=== PATIENT | male | born 1945 | race Caucasian/White ===

== ENCOUNTER → 2018-11-07 | Outpatient (CLI) | payer OTHER ==
--- NOTE | 2018-11-07 15:49 | Diagnostic Imaging Report ---
PROCEDURE: US Venous Lower Ext Eddie. TECHNIQUE: Multiple real-time grayscale images were obtained over the lower extremities in various projections, bilaterally. Additional duplex Doppler and color Doppler images were also obtained. INDICATION: Leg swelling. FINDINGS: There is no evidence of right or left lower extremity DVT. Both lower extremity deep venous systems demonstrate normal compressibility with normal response to augmentation and Valsalva. No fluid collection or mass is seen. IMPRESSION: No evidence of right or left lower extremity DVT. Dictated by: Dictated on workstation # [id number]
== END ==
LOC: RAD 13:41
PROVIDERS: ATTEND Pediatrics
DX: M79.89 Other specified soft tissue disorders (principal)
CPT/HCPCS: 93970

== ENCOUNTER → 2018-12-27 | Outpatient (CLI) | payer OTHER ==
[2018-12-27 11:22] LABS: CLARITY,URINE CLEAR; COLOR,URINE YELLOW; GLUCOSE, URINE (UA) NEGATIVE (NEGATIVE); PROTEIN,URINE NEGATIVE (NEGATIVE)
[2018-12-27 11:23] LABS: BACTERIA,URINE FEW /HPF; BILIRUBIN,URINE NEGATIVE (NEGATIVE); KETONES,URINE NEGATIVE (NEGATIVE); LEUKOCYTE ESTERASE ,URINE 1+ (NEGATIVE); NITRITE,URINE NEGATIVE (NEGATIVE); UROBILINOGEN,URINE 0.2 MG/DL (NORMAL)
== END ==
PROVIDERS: ATTEND Pediatrics
DX: N32.81 Overactive bladder (principal)
CPT/HCPCS: 81000; 87088

== ENCOUNTER → 2019-03-31 | Outpatient (CLI) | payer OTHER ==
[2019-03-31 16:38] LABS: ALKALINE PHOSPHATASE 65 U/L (40-136); BILIRUBIN,TOTAL 0.3 MG/DL (0.1-1.0); BUN/CREATININE RATIO 15; CALCIUM 9.1 MG/DL (8.5-10.1); CARBON DIOXIDE 26 MMOL/L (21-32); CHLORIDE 101 MMOL/L (98-107); CREATININE SERUM 0.85 MG/DL (0.60-1.30); GFR ESTIMATED > 60; GLUCOSE 237 MG/DL (70-105); MAGNESIUM 2.1 MG/DL (1.6-2.4); POTASSIUM 4.5 MMOL/L (3.6-5.0); SODIUM 140 MMOL/L (135-145)
[2019-03-31 16:39] LABS: ALANINE AMINOTRANSFERASE 7 U/L (0-55); ALBUMIN 4.2 GM/DL (3.2-4.5); BASOPHILS % (AUTO) 1 % (0-10); EOSINOPHILS % (AUTO) 4 % (0-10); HEMATOCRIT 42 % (40-54); HEMOGLOBIN 12.7 G/DL (13.3-17.7); LYMPHOCYTES # (AUTO) 1.3 X 10^3 (1.0-4.0); LYMPHOCYTES % (AUTO) 14 % (12-44); MEAN CORPUSCULAR HEMOGLOBIN 27 PG (25-34); MEAN CORPUSCULAR HGB CONC 31 G/DL (32-36); MEAN CORPUSCULAR VOLUME 89 FL (80-99); MEAN PLATELET VOLUME 11.4 FL (7.4-10.4); MONOCYTES # (AUTO) 0.6 X 10^3 (0.0-1.0); MONOCYTES % (AUTO) 6 % (0-12); NEUTROPHILS # (AUTO) 6.8 X 10^3 (1.8-7.8); NEUTROPHILS % (AUTO) 75 % (42-75); PLATELET COUNT 295 10^3/uL (130-400); RED CELL DISTRIBUTION WIDTH 13.5 % (10.0-14.5); TOTAL PROTEIN 7.1 GM/DL (6.4-8.2); WHITE BLOOD COUNT 9.1 10^3/uL (4.3-11.0)
[2019-03-31 16:40] LABS: BASOPHILS # (AUTO) 0.1 10^3/uL (0.0-0.1); EOSINOPHILS # (AUTO) 0.4 10^3/uL (0.0-0.3)
[2019-04-01 09:06] LABS: FREE T4 (FREE THYROXINE) 0.79 NG/DL (0.70-1.48)
== END ==
LOC: LAB FS 16:04
PROVIDERS: ATTEND Pediatrics
DX: I48.0 Paroxysmal atrial fibrillation (principal); M79.89 Other specified soft tissue disorders; R53.83 Other fatigue
CPT/HCPCS: 36415; 80053; 83735; 84439; 84443; 85025

== ENCOUNTER → 2022-06-01 | Outpatient (CLI) | payer OTHER ==
[2022-06-01 08:07] LABS: POTASSIUM 4.2 MMOL/L (3.6-5.0)
[2022-06-01 08:08] LABS: BILIRUBIN,TOTAL 0.4 MG/DL (0.1-1.0); CALCIUM 9.2 MG/DL (8.5-10.1); CREATININE SERUM 0.83 MG/DL (0.60-1.30); TOTAL PROTEIN 6.8 GM/DL (6.4-8.2)
== END ==
PROVIDERS: ATTEND Pediatrics
DX: R60.9 Edema, unspecified (principal)
CPT/HCPCS: 80053

== ENCOUNTER → 2022-06-03 | Outpatient (CLI) | payer OTHER ==
[2022-06-03 09:57] LABS: BASOPHILS # (AUTO) 0.1 10^3/uL (0.0-0.1); BASOPHILS % (AUTO) 1 % (0-10); EOSINOPHILS # (AUTO) 0.6 10^3/uL (0.0-0.3); EOSINOPHILS % (AUTO) 7 % (0-10); HEMATOCRIT 42 % (40-54); HEMOGLOBIN 13.2 g/dL (13.3-17.7); LYMPHOCYTES # (AUTO) 1.5 10^3/uL (1.0-4.0); LYMPHOCYTES % (AUTO) 17 % (12-44); MEAN CORPUSCULAR HEMOGLOBIN 28 pg (25-34); MEAN CORPUSCULAR HGB CONC 31 g/dL (32-36); MEAN CORPUSCULAR VOLUME 88 fL (80-99); MEAN PLATELET VOLUME 11.5 fL (9.0-12.2); MONOCYTES # (AUTO) 0.6 10^3/uL (0.0-1.0); MONOCYTES % (AUTO) 6 % (0-12); NEUTROPHILS # (AUTO) 6.3 10^3/uL (1.8-7.8); NEUTROPHILS % (AUTO) 70 % (42-75); PLATELET COUNT 251 10^3/uL (130-400)
== END ==
PROVIDERS: ATTEND Pediatrics
DX: R60.9 Edema, unspecified (principal)
CPT/HCPCS: 85025

== ENCOUNTER → 2022-08-03 | Outpatient (CLI) | payer OTHER ==
[2022-08-03 12:38] LABS: BASOPHILS % (AUTO) 1 % (0-10); EOSINOPHILS # (AUTO) 0.4 10^3/uL (0.0-0.3); EOSINOPHILS % (AUTO) 5 % (0-10); HEMATOCRIT 40 % (40-54); HEMOGLOBIN 12.6 g/dL (13.3-17.7); LYMPHOCYTES # (AUTO) 1.5 10^3/uL (1.0-4.0); LYMPHOCYTES % (AUTO) 17 % (12-44); MEAN CORPUSCULAR HEMOGLOBIN 28 pg (25-34); MEAN CORPUSCULAR HGB CONC 32 g/dL (32-36); MEAN CORPUSCULAR VOLUME 89 fL (80-99); MEAN PLATELET VOLUME 11.9 fL (9.0-12.2); MONOCYTES # (AUTO) 0.7 10^3/uL (0.0-1.0); MONOCYTES % (AUTO) 8 % (0-12); NEUTROPHILS # (AUTO) 6.1 10^3/uL (1.8-7.8); NEUTROPHILS % (AUTO) 69 % (42-75); PLATELET COUNT 236 10^3/uL (130-400); WHITE BLOOD COUNT 8.8 10^3/uL (4.3-11.0)
[2022-08-03 13:52] LABS: BILIRUBIN,URINE NEGATIVE (NEGATIVE); CLARITY,URINE CLEAR; COLOR,URINE YELLOW; GLUCOSE, URINE (UA) NEGATIVE (NEGATIVE); KETONES,URINE NEGATIVE (NEGATIVE); LEUKOCYTE ESTERASE ,URINE NEGATIVE (NEGATIVE); NITRITE,URINE NEGATIVE (NEGATIVE); PROTEIN,URINE NEGATIVE (NEGATIVE)
[2022-08-03 14:01] LABS: BACTERIA,URINE NEGATIVE /HPF; RBC,URINE RARE /HPF; SQUAMOUS EPITHELIAL CELL,UR RARE /HPF
== END ==
PROVIDERS: ATTEND Pediatrics
DX: R50.9 Fever, unspecified (principal)
CPT/HCPCS: 81000; 85025

== ENCOUNTER → 2022-08-13 | Outpatient (CLI) | payer OTHER ==
[2022-08-13 15:55] LABS: BILIRUBIN,URINE NEGATIVE (NEGATIVE); CLARITY,URINE CLEAR; COLOR,URINE YELLOW; GLUCOSE, URINE (UA) NEGATIVE (NEGATIVE); KETONES,URINE NEGATIVE (NEGATIVE); LEUKOCYTE ESTERASE ,URINE TRACE (NEGATIVE); NITRITE,URINE NEGATIVE (NEGATIVE); PROTEIN,URINE NEGATIVE (NEGATIVE)
[2022-08-13 16:01] LABS: BACTERIA,URINE TRACE /HPF; RBC,URINE 0-2 /HPF; SQUAMOUS EPITHELIAL CELL,UR RARE /HPF
== END ==
PROVIDERS: ATTEND Pediatrics
DX: R30.9 Painful micturition, unspecified (principal)
CPT/HCPCS: 81000; 87088

== ENCOUNTER → 2022-10-26 | Outpatient (CLI) | payer OTHER ==
[2022-10-26 14:10] LABS: BILIRUBIN,TOTAL 0.3 MG/DL (0.1-1.0); CALCIUM 9.2 MG/DL (8.5-10.1); CREATININE SERUM 0.79 MG/DL (0.60-1.30); POTASSIUM 4.2 MMOL/L (3.6-5.0)
[2022-10-26 16:02] LABS: FREE T4 (FREE THYROXINE) 0.81 NG/DL (0.70-1.48)
== END ==
PROVIDERS: ATTEND Pediatrics
DX: I10 Essential (primary) hypertension (principal)
CPT/HCPCS: 80053; 80178; 84439; 84443; 84481

== ENCOUNTER 2023-02-09 01:14 | Emergency (ER) | payer OTHER ==
[~2023-02-09] VITALS: Ht 180.3 cm; Wt 120.0 kg
--- NOTE | 2023-02-09 01:30 | ED Fall/Injury ---
General Stated Complaint: FALL|BILATERAL HIP PAIN Source: patient, EMS, care home records History of Present Illness Date Seen by Provider: Feb 09, 2023 Time Seen by Provider: 01:18 Initial Comments 77-year-old male presenting with EMS from [facility]. Patient has a history of Parkinson's and does not walk. He sleeps in a chair and had slid from the recliner onto the floor. He states that initially his hips were hurting. He denies having any pain currently. He denies hitting his head or any other injuries. He also reports that he has had bilateral hip replacement previously. Occurred: just prior to arrival Injuries/Pain Location: lower extremity (Initially had bilateral hand pain but now denies any pain) Context: slipped (Slipped from the chair onto the floor) Loss of Consciousness: no loss of consciousness Associated Symptoms (Fall): No Abdominal Pain, No Chest Pain, No Confusion, No Dizziness, No Headache, No Lightheadedness, No Muscle Spasms, No Nausea/Vomiting, No Neck Pain, No Ringing in Ears, No Seizures, No Shortness of Air, No Slurred Speech; Trouble Walking (Chronic); No Vision Changes Allergies and Home Medications Allergies Coded Allergies: aripiprazole (Unverified Allergy, Unknown, 02/09/23) lovastatin (Unverified Allergy, Unknown, 02/09/23) melatonin (Unverified Allergy, Unknown, 02/09/23) morphine (Unverified Allergy, Unknown, 02/09/23) niacin (Unverified Allergy, Unknown, 02/09/23) pravastatin (Unverified Allergy, Unknown, 02/09/23) quetiapine (Unverified Allergy, Unknown, 02/09/23) simvastatin (Unverified Allergy, Unknown, 02/09/23) Patient Home Medication List Home Medication List Reviewed: Yes Review of Systems Review of Systems Constitutional: No chills, No fever Eyes: No Symptoms Reported Ears, Nose, Mouth, Throat: no symptoms reported Respiratory: no symptoms reported Cardiovascular: no symptoms reported Gastrointestinal: no symptoms reported Genitourinary: no symptoms reported Musculoskeletal: see HPI Past [id number] Hx Past Medical History Surgery/Hospitalization HX: Parkinson's, bipolar, obesity, frequent falls Physical Exam Vital Signs Vital Signs - First Documented 02/09/23 01:18 Temp 36.8 Pulse 66 Resp 20 B/P (MAP) 139/80 (99) Pulse Ox 97 O2 Delivery Room Air Capillary Refill : Height, Weight, BMI Height: '" Weight: lbs. oz. kg; BMI Method: General Appearance: no apparent distress, obese, other (Chronically ill- appearing) Cardiovascular: normal peripheral pulses Extremities: non-tender, pedal edema (2+ pitting edema bilateral lower extremities) Neurologic/Psychiatric: alert, oriented x 3 Skin: warm/dry Ilan Coma Score Best Eye Response: (4) Open Spontaneously Best Verbal Response: (5) Oriented Best Motor Response: (6) Obeys Commands Ilan Total: 15 Progress/Results/Core Measures Results/Orders My Orders Orders - EVGENY POTTS MD Pelvis/Eddie Hips 2 View (02/09/23 01:24) Vital Signs/I&O 02/09/23 01:18 Temp 36.8 Pulse 66 Resp 20 B/P (MAP) 139/80 (99) Pulse Ox 97 O2 Delivery Room Air Progress Progress Note #1: Progress Note Is patient reports that he initially had hip pain bilaterally will obtain an x- ray of the pelvis and bilateral hips. With movement of the legs he was not complaining of any pain here in the emergency department. Progress Note #2: Progress Note My personal interpretation and review of his pelvis and bilateral hip x-rays I did not appreciate any acute fracture or hardware failure. He did have arthritic changes. Patient continues to deny having any pain. Will discharge back to the care home with recommendations for Tylenol if needed for pain and if he has pain or new symptoms he might need to follow-up with orthopedics or have further imaging Diagnostic Imaging Diagonstic Imaging: Xray Plain Films/CT/US/NM/MRI: pelvis, hip Reviewed: Reviewed by Me Departure Impression Primary Impression: Acute hip pain, bilateral Additional Impressions: Fall from chair, initial encounter Contusion of left hip, initial encounter Contusion of right hip, initial encounter Disposition: 01 HOME, SELF-CARE Condition: Stable Departure-Patient Inst. Decision time for Depature: 01:55 Referrals: YOHAN FRANCIS MD (PCP) Primary Care Physician Patient Instructions: Hip Pain ED Add. Discharge Instructions: Tylenol 650 mg every 6 hours as needed for pain. If he has recurrent pain he could follow up with primary care or Orthopedics for further evaluation. No definite fracture or failure or hardware on xrays. EVGENY POTTS MD Feb 09, 2023 01:30
[2023-02-09 02:14] VITALS: BP 139/80
--- NOTE | 2023-02-09 06:53 | Diagnostic Imaging Report ---
History: Bilateral hip pain after injury COMPARISON: None TECHNIQUE: Frontal view of the pelvis. Frontal and lateral views of the bilateral hips. FINDINGS: No acute fracture seen in the pelvis. There are bilateral total hip arthroplasties. There are additional cerclage wires with claw fixation of the right greater trochanter. No acute fracture seen in the proximal femurs. Alignment appears normal. Bilateral sacroiliac joints appear patent. There are degenerative changes in the lower lumbar spine. IMPRESSION: 1. Bilateral hip arthroplasties with no hardware complication seen. No acute fracture seen in the pelvis. Dictated by: Dictated on workstation # [id number]
== END 2023-02-09 02:14 | disposition home or self-care (01) ==
LOC: EDUNIT# 01:14 → ER FS 01:19
DX: S70.01XA Contusion of right hip, initial encounter (principal); S70.02XA Contusion of left hip, initial encounter; E66.9 Obesity, unspecified; Z68.36 Body mass index [BMI] 36.0-36.9, adult; Z96.643 Presence of artificial hip joint, bilateral; W07.XXXA Fall from chair, initial encounter
CPT/HCPCS: 73521